=== PATIENT | male | born 1990 | race Caucasian/White ===

== ENCOUNTER 2016-07-07 03:03 | Emergency (ER) | payer SELFPAY ==
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
[2016-07-07 05:33] VITALS: BP 127/64
--- NOTE | 2016-07-08 16:37 | CR ---
EXAM DATE: 07/07/16 PATIENT'S AGE: 26 Patient: CATIE TOURE Facility: [place], [place] Site . Site : 1990 Study: XRay Chest Left RIBS [id number]/14/2017 3:56:10 AM Ordering Physician: Terrell Smiely Final Report: INDICATION: Injury TECHNIQUE: Chest and left ribs 4 views. COMPARISON: None available FINDINGS: Cardiovascular and mediastinum: Heart size and vasculature are normal in caliber and appearance. Mediastinum is within normal limits. Lungs and pleural spaces: Lungs are clear. No sign of infiltrate or mass. No sign of pleural effusion. No pneumothorax. Bones and soft tissues: Detailed oblique images of the left ribs demonstrate no fractures or bone lesions. IMPRESSION: Unremarkable chest and left ribs. Dictated by Carl Kumari MD @ 07/07/2016 4:30:19 AM Dictated by: Carl Kumari MD @ 07/07/2016 04:30:25 (Electronic Signature) Report Signed by Proxy. MATHEUS
--- NOTE | 2016-07-08 16:39 | CT ---
EXAM DATE: 07/07/16 PATIENT'S AGE: 26 Patient: CATIE TOURE Facility: [place], [place] Site . Site : 1990 Study: CT Head WO CONT [id number]/14/2017 3:58:50 AM Ordering Physician: Terrell Smiley Final Report: INDICATION: Injury TECHNIQUE: CT head without contrast. COMPARISON: None available FINDINGS: There is mild artifact near the skullbase. The ventricles and sulci demonstrate normal configuration and size. There is no mass effect or midline shift. There is no loss of cabral-white differentiation. There is no evidence of a gross acute intracranial hemorrhage. Small ill- defined densities in the inferior frontal lobes could be related to artifact. No acute calvarial fracture is seen. The visualized paranasal sinuses and mastoid air cells are clear. The visualized orbits are within normal limits. IMPRESSION: No evidence of a gross acute intracranial hemorrhage, mass effect or loss of cabral-white differentiation. Dictated by Carl Kumari MD @ 07/07/2016 4:09:18 AM Dictated by: Carl Kumari MD @ 07/07/2016 04:09:23 (Electronic Signature) Report Signed by Proxy. MATHEUS
--- NOTE | 2016-07-08 16:41 | CT ---
EXAM DATE: 07/07/16 PATIENT'S AGE: 26 Patient: CATIE TOURE Facility: [place], [place] Site . Site : 1990 Study: CT Facial WO CONT [id number]/14/2017 4:04:31 AM Ordering Physician: Terrell Smiley Final Report: INDICATION: Injury TECHNIQUE: CT maxillofacial without contrast. COMPARISON: None available FINDINGS: There is minimal focal irregularity at the left nasal suture without significant overlying soft tissue swelling. There is otherwise no evidence of an acute facial bone fracture. There are osseous lucencies adjacent to mandibular teeth compatible with periodontal disease. There is no significant facial soft tissue swelling. The orbital contents appear symmetrical. No air- fluid levels are seen in the paranasal sinuses. IMPRESSION: No evidence of an acute facial bone fracture. Slight focal irregularity of the left nasal suture without overlying soft tissue swelling. Correlate for focal tenderness. Dictated by Carl Kumari MD @ 07/07/2016 4:16:10 AM Dictated by: Carl Kumari MD @ 07/07/2016 04:16:14 (Electronic Signature) Report Signed by Proxy. [facility] LANGONE HEALTH SYSTEMAmanda
== END 2016-07-07 04:50 ==
LOC: MW.ED 03:03
DX: S20.212A Contusion of left front wall of thorax, initial encounter (principal); S00.83XA Contusion of other part of head, initial encounter; F10.920 Alcohol use, unspecified with intoxication, uncomplicated; K08.9 Disorder of teeth and supporting structures, unspecified; Y04.2XXA Assault by strike against or bumped into by another person, initial encounter; Y92.410 Unspecified street and highway as the place of occurrence of the external cause
CPT/HCPCS: 70450; 70450-26; 70486; 70486-26; 71101-26-LT; 71101-LT; 99283; 99284-25